=== PATIENT | male | born 1940 | race Hispanic/Latino ===

== ENCOUNTER 2018-02-11 19:52 | Inpatient (IN) | payer OTHER ==
[~2018-02-11] VITALS: Ht 182.9 cm; Wt 108.0 kg
[2018-02-11 21:06] LABS: BASOPHIL (%) 0.2 % (0-1); EOSINOPHIL (%) 0 % (0-5); HEMATOCRIT 33.8 % (38.0-50.0); HEMOGLOBIN 11.3 G/DL (12.5-16.6); IMMATURE GRANULOCYTE (%) 0.6 % (0.0-0.7); LYMPHOCYTE (%) 10.7 % (15-42); LYMPHOCYTE COUNT 2.5 K/uL (1.0-2.8); MCH 28.9 PG (29.0-34.0); MCHC 33.4 G/DL (30.0-36.0); MCV 86.4 FL (86-99); MONOCYTE (%) 11.3 % (3-12); MONOCYTE COUNT 2.6 K/uL (0-0.8); NEUTROPHIL (%) 77.2 % (45-76); NEUTROPHIL COUNT 17.9 K/uL (1.8-6.4); PLATELET COUNT 383 K/uL (156-360); RBC DIS.WIDTH-CV 13.8 % (11.8-14.6); RBC DIS.WIDTH-SD 43.7 % (39-53); RED BLOOD COUNT 3.91 M/uL (4.00-5.50); WHITE BLOOD COUNT 23.2 K/uL (4.1-10.2)
[2018-02-11 21:13] LABS: ALBUMIN 3.6 g/dL (3.2-4.8); CHLORIDE 99 mEq/L (99-109); POTASSIUM 3.9 mEq/L (3.7-5.4); SODIUM 134 mEq/L (136-147)
[2018-02-11 21:16] LABS: GLUCOSE 130 mg/dL (70-99); TOTAL PROTEIN 8.9 g/dL (6.4-8.3)
[2018-02-11 21:18] LABS: TOTAL BILIRUBIN 1.5 mg/dL (0.0-1.0)
[2018-02-11 21:19] LABS: ALKALINE PHOSPHATASE 80 IU/L (3-129); CREATININE 2.6 mg/dL (0.6-1.3); GFR ESTIMATE (CALCULATED) 26 mL/min/ (58.99-99999)
[2018-02-11 21:21] LABS: AST (GOT) 18 IU/L (2-34); DIRECT BILIRUBIN 0.7 mg/dL (0.0-0.3); UREA NITROGEN (BUN) 37 mg/dL (9-23)
[2018-02-11 21:22] LABS: ALT (GPT) 17 IU/L (3-49)
[2018-02-11 21:23] LABS: LIPASE 15 U/L (1.0-51.0)
[2018-02-11] MEDS ORDERED: BENTYL10 MG PO (21:58)
[2018-02-11] MEDS ORDERED: AMITIZA24 MICROGR PO (21:58)
[2018-02-11] MEDS ORDERED: ZOFRAN4 MG PO (21:58)
[2018-02-11] MEDS ORDERED: ASCORBIC ACID500 M3 PO (21:59)
[2018-02-11] MEDS ORDERED: COZAAR50 MG PO (21:59)
[2018-02-11] MEDS ORDERED: HYDROCHLOROTHIA25 MG PO (21:59)
[2018-02-11] MEDS ORDERED: KLOR-CON 1010 ME1 PO (21:59)
[2018-02-11] MEDS ORDERED: CYANOCOBALAM1000 MCG PO (21:59)
[2018-02-11 22:02] LABS: APPEARANCE CLEAR ((CLEAR)); BILIRUBIN NEGATIVE; BLOOD SMALL; COLOR YELLOW ((YELLOW)); GLUCOSE (STRIP) NEGATIVE; KETONES NEGATIVE; LEUKOCYTES NEGATIVE; NITRITE NEGATIVE; PROTEIN (STRIP) 30; SPECIFIC GRAVITY 1.024 (1.000-1.030)
[2018-02-11 22:08] LABS: BACTERIA RARE /HPF; EPITHELIAL CELLS RARE /HPF; HYALINE CASTS 0-5 /LPF; MUCUS TRACE /LPF; WHITE BLOOD CELLS 0-5 /HPF (0-5)
[2018-02-12] VITALS (7 sets, daily range): BP systolic 108–175; BP diastolic 55–99
[2018-02-12 06:44] LABS: BASOPHIL (%) 0.2 % (0-1); EOSINOPHIL (%) 0.1 % (0-5); HEMATOCRIT 29.4 % (38.0-50.0); HEMOGLOBIN 9.8 G/DL (12.5-16.6); IMMATURE GRANULOCYTE (%) 0.6 % (0.0-0.7); LYMPHOCYTE (%) 12.8 % (15-42); LYMPHOCYTE COUNT 2.5 K/uL (1.0-2.8); MCH 29.3 PG (29.0-34.0); MCHC 33.3 G/DL (30.0-36.0); MONOCYTE (%) 10.9 % (3-12); MONOCYTE COUNT 2.1 K/uL (0-0.8); NEUTROPHIL (%) 75.4 % (45-76); NEUTROPHIL COUNT 14.4 K/uL (1.8-6.4); PLATELET COUNT 319 K/uL (156-360); RBC DIS.WIDTH-CV 14.1 % (11.8-14.6); RBC DIS.WIDTH-SD 45.2 % (39-53); RED BLOOD COUNT 3.34 M/uL (4.00-5.50); WHITE BLOOD COUNT 19.1 K/uL (4.1-10.2)
[2018-02-12 07:05] LABS: CHLORIDE 102 MEQ/L (99-109); GLUCOSE 104 mg/dL (70-99); POTASSIUM 3.9 MEQ/L (3.7-5.4); SODIUM 135 MEQ/L (136-147); UREA NITROGEN (BUN) 34 mg/dL (9-23)
[2018-02-12 07:12] LABS: CREATININE 2.1 MG/DL (0.6-1.3); GFR ESTIMATE (CALCULATED) 33 mL/min/ (58.99-99999)
[2018-02-13 04:00] VITALS: BP 107/57
[2018-02-13 06:47] LABS: BASOPHIL (%) 0.2 % (0-1); EOSINOPHIL (%) 0.9 % (0-5); EOSINOPHIL COUNT 0.1 K/uL (0-0.3); HEMATOCRIT 27.8 % (38.0-50.0); HEMOGLOBIN 9.1 G/DL (12.5-16.6); IMMATURE GRANULOCYTE (%) 0.6 % (0.0-0.7); LYMPHOCYTE (%) 18.1 % (15-42); LYMPHOCYTE COUNT 2.2 K/uL (1.0-2.8); MCH 29.3 PG (29.0-34.0); MCHC 32.7 G/DL (30.0-36.0); MCV 89.4 FL (86-99); MONOCYTE (%) 10.7 % (3-12); MONOCYTE COUNT 1.3 K/uL (0-0.8); NEUTROPHIL (%) 69.5 % (45-76); NEUTROPHIL COUNT 8.6 K/uL (1.8-6.4); PLATELET COUNT 308 K/uL (156-360); RBC DIS.WIDTH-CV 14.3 % (11.8-14.6); RBC DIS.WIDTH-SD 46.4 % (39-53); RED BLOOD COUNT 3.11 M/uL (4.00-5.50); WHITE BLOOD COUNT 12.3 K/uL (4.1-10.2)
[2018-02-13 07:20] LABS: ALBUMIN 2.8 G/DL (3.2-4.8); CHLORIDE 105 MEQ/L (99-109); GFR ESTIMATE (CALCULATED) 48 mL/min/ (58.99-99999); GLUCOSE 98 mg/dL (70-99); PHOSPHORUS 3.1 mg/dL (2.5-4.9); POTASSIUM 3.9 MEQ/L (3.7-5.4); SODIUM 138 MEQ/L (136-147); UREA NITROGEN (BUN) 27 mg/dL (9-23)
[2018-02-13 07:26] VITALS: BP 154/82
[2018-02-13 07:27] LABS: CREATININE 1.5 MG/DL (0.6-1.3)
[2018-02-13 16:25] VITALS: BP 125/66
[2018-02-13 20:06] VITALS: BP 131/69
[2018-02-13 23:23] VITALS: BP 133/67
[2018-02-14 03:40] VITALS: BP 129/64
[2018-02-14 06:21] LABS: HEMATOCRIT 26.1 % (38.0-50.0); HEMOGLOBIN 8.6 G/DL (12.5-16.6); MCH 29.3 PG (29.0-34.0); MCV 88.8 FL (86-99); PLATELET COUNT 337 K/uL (156-360); RBC DIS.WIDTH-SD 45.4 % (39-53); RED BLOOD COUNT 2.94 M/uL (4.00-5.50); WHITE BLOOD COUNT 11.1 K/uL (4.1-10.2)
[2018-02-14 06:44] LABS: ALBUMIN 2.5 G/DL (3.2-4.8); ALKALINE PHOSPHATASE 59 IU/L (3-129); ALT (GPT) 32 IU/L (3-49); AST (GOT) 25 IU/L (2-34); CHLORIDE 103 MEQ/L (99-109); CREATININE 1.4 MG/DL (0.6-1.3); GFR ESTIMATE (CALCULATED) 53 mL/min/ (58.99-99999); GLUCOSE 109 mg/dL (70-99); POTASSIUM 3.7 MEQ/L (3.7-5.4); SODIUM 137 MEQ/L (136-147); TOTAL BILIRUBIN 0.6 MG/DL (0.0-1.0); TOTAL PROTEIN 5.9 G/DL (6.4-8.3); UREA NITROGEN (BUN) 18 mg/dL (9-23)
[2018-02-14 07:40] VITALS: BP 139/69
[2018-02-14 11:15] VITALS: BP 132/66
[2018-02-14 16:32] VITALS: BP 148/70
[2018-02-14 19:56] VITALS: BP 119/91
[2018-02-15 00:02] VITALS: BP 130/61
[2018-02-15 06:39] LABS: BASOPHIL (%) 0.5 % (0-1); BASOPHIL COUNT 0.1 K/uL (0-0.1); EOSINOPHIL (%) 2.4 % (0-5); EOSINOPHIL COUNT 0.3 K/uL (0-0.3); HEMATOCRIT 26.6 % (38.0-50.0); HEMOGLOBIN 8.7 G/DL (12.5-16.6); IMMATURE GRANULOCYTE (%) 0.6 % (0.0-0.7); LYMPHOCYTE (%) 21.4 % (15-42); LYMPHOCYTE COUNT 2.3 K/uL (1.0-2.8); MCHC 32.7 G/DL (30.0-36.0); MCV 88.7 FL (86-99); MONOCYTE (%) 12.2 % (3-12); MONOCYTE COUNT 1.3 K/uL (0-0.8); NEUTROPHIL (%) 62.9 % (45-76); NEUTROPHIL COUNT 6.6 K/uL (1.8-6.4); PLATELET COUNT 366 K/uL (156-360); RBC DIS.WIDTH-CV 13.8 % (11.8-14.6); WHITE BLOOD COUNT 10.5 K/uL (4.1-10.2)
[2018-02-15 07:05] LABS: ALBUMIN 2.6 G/DL (3.2-4.8); CHLORIDE 105 MEQ/L (99-109); CHLORIDE 107 MEQ/L (99-109); CREATININE 1.3 MG/DL (0.6-1.3); CREATININE 1.4 MG/DL (0.6-1.3); GFR ESTIMATE (CALCULATED) 53 mL/min/ (58.99-99999); GFR ESTIMATE (CALCULATED) 57 mL/min/ (58.99-99999); GLUCOSE 114 mg/dL (70-99); GLUCOSE 116 mg/dL (70-99); PHOSPHORUS 3.4 mg/dL (2.5-4.9); POTASSIUM 3.8 MEQ/L (3.7-5.4); SODIUM 138 MEQ/L (136-147); SODIUM 139 MEQ/L (136-147); UREA NITROGEN (BUN) 16 mg/dL (9-23)
[2018-02-15 07:13] VITALS: BP 124/60
[2018-02-15 08:52] LABS: INTACT PARATHYROID HORMONE 50 pg/mL (10-69)
[2018-02-15 11:10] VITALS: BP 146/70
[2018-02-15 15:23] VITALS: BP 148/68
[2018-02-15] MEDS ORDERED: CARDIZEM CD120 MG PO (17:51)
[2018-02-15] MEDS ORDERED: VITAMIN D-32000 UNI2 PO (17:51)
[2018-02-15] MEDS ORDERED: CEFTIN500 MG PO (17:51)
[2018-02-15 19:59] VITALS: BP 168/87
== END 2018-02-15 20:11 | disposition home or self-care (01) | DRG 684 ==
LOC: EME 19:52 → EDOF 23:00 → 3EAST 23:00 → ENRESERV 23:20 → 3EAST 02-12 00:01
PROVIDERS: Family Medicine; Internal Medicine; Internal Medicine Nephrology; Physician Assistant
DX: N17.9 Acute kidney failure, unspecified (principal); N13.6 Pyonephrosis; E66.9 Obesity, unspecified; J44.9 Chronic obstructive pulmonary disease, unspecified; Z68.30 Body mass index [BMI] 30.0-30.9, adult; D63.8 Anemia in other chronic diseases classified elsewhere; Z87.891 Personal history of nicotine dependence; E55.9 Vitamin D deficiency, unspecified; K59.09 Other constipation
CPT/HCPCS: 76770; 80048; 80048 91; 80053; 80069; 80076; 81003; 82306; 83605; 83690; 83970; 85025; 85027; 87040; 87086; 87493; 99281; 99285; J0295; J1170; J1644; J2543; J7030; J7050